=== PATIENT | female | born 1960 | race Caucasian/White ===

== ENCOUNTER 2016-09-28 12:44 | Emergency (ER) | payer OTHER ==
[~2016-09-28] VITALS: Ht 157.5 cm; Wt 54.5 kg
[2016-09-28 12:49] VITALS: Ht 157.5 cm; Wt 54.5 kg
[2016-09-28] MEDS ORDERED: ONDANSETRON (ODT) 4 MG TAB ODT STA (13:20)
[2016-09-28] MEDS ORDERED: HYDROCODONE/APAP (5/325) TAB PO ONE (13:30)
--- NOTE | 2016-09-28 14:23 | RADRPT ---
PROCEDURE: CT brain without contrast CLINICAL INDICATION: Headaches TECHNIQUE: CT of the brain without contrast was performed on a multidetector CT scanner, with multi planar reformats. One or more of the following dose reduction techniques were used: Automated expos ure control, adjustment in mA and / or kV according to patient size, use of iterative reconstructive technique. CTDIvol = 44 mGy; DLP = 720 mGy-cm. COMPARISON: None available FINDINGS: No acute intracranial hemorrhage is identified. No extra-axial fluid collection is seen. There is no mass effect. No midline shift is identified. Ventricles and sulci are within normal limits for size and configuration. The density of the brain is within normal limits. Quiroz-white differentiation is preserved. Calvarium and skull base are intact. Bubbly secretions are visualized in the left sphenoid sinus. IMPRESSION: 1. No evidence of acute intracranial pathology; brain is unremarkable appearance. 2. Paranasal sinus disease described above. RPTAT: VV .Richard Ayala MD, Date Time Electronically viewed and signed by .Richard Ayala MD, on 09/28/2016 14:23 .O/
[2016-09-28 14:32] LABS: ADD UMIC YES; UR ASCORBIC ACID NEGATIVE (NEGATIVE); UR BILIRUBIN (Dip) NEGATIVE (NEGATIVE); UR BLOOD (Dip) NEGATIVE (NEGATIVE); UR CLARITY SLIGHTLY CLOUDY (CLEAR); UR COLOR YELLOW (YELLOW); UR GLUCOSE (Dip) NEGATIVE (NEGATIVE); UR KETONES (Dip) NEGATIVE (NEGATIVE); UR LEUKOCYTE ESTERASE (Dip) 3+ Leu/ul (NEGATIVE); UR NITRITE (Dip) NEGATIVE (NEGATIVE); UR NONSQUAMOUS EPITHELIAL CELL 2 /HPF (NONE SEEN); UR RBC 7 /HPF (0-5); UR SPECIFIC GRAVITY (Dip) 1.008 (1.003-1.030); UR SQUAMOUS EPITHELIAL CELL MODERATE /HPF (FEW); UR TOTAL PROTEIN (Dip) NEGATIVE (NEGATIVE); UR UROBILINOGEN (Dip) NEGATIVE (NEGATIVE)
[2016-09-28] MEDS ORDERED: KETOROLAC 60 MG INJ IM STA (14:49)
[2016-09-28] MEDS ORDERED: AMOXICILLIN/CLAV 875 MG TAB PO ONE (15:00)
[2016-09-28] MEDS ORDERED: predniSONE 20 MG TAB PO ONE (15:00)
[2016-09-28] MEDS ORDERED: BUTA1CAP38 PO (15:24)
[2016-09-28] MEDS ORDERED: IBUP-1542 PO (15:24)
[2016-09-28] MEDS ORDERED: AMOX1TAB10 PO (15:24)
--- NOTE | 2016-09-28 15:31 | ERD ---
ER Documentation Chief Complaint Date/Time DATE: 09/28/16 TIME: 15:29 Chief Complaint pt bib family with c/o headache for months on and off, worse today HPI This 56-year-old female complains of a headache for several months. She is describes as being as every day. She points to the frontal and bitemporal area. She has been seen by her primary doctor told it might be a tension headache. She denies any fevers, visual changes, vomiting, weakness, bowel or bladder incontinence, history of trauma. ROS All systems reviewed and are negative except as per history of present illness. Medications Home Meds Active Scripts Amoxicillin/Potassium Clav (Amox-Clav 875-125 mg Tablet) 875-125 mg Tab, 1 TAB PO BID for 10 Days, #14 TAB Prov:CASEY REYES MD 09/28/16 Tazdqyltjx-Beypqwyuxqpnu-Dzpasnkd* (Fioricet*) 50-300-40 Mg Capsule, 1 CAP PO Q4H Y for HEADACHE, #15 CAP Prov:CASEY RYEES MD 09/28/16 Ibuprofen* (Motrin*) 600 Mg Tab, 600 MG PO Q6, #20 TAB Prov:CASEY REYES MD 09/28/16 Allergies Allergies: Coded Allergies: No Known Allergy (Unverified , 09/28/16) PMhx/Soc Medical and Surgical Hx: pt denies Medical Hx, pt denies Surgical Hx Hx Alcohol Use: No Hx Substance Use: No Hx Tobacco Use: No Physical Exam Vitals Vital Signs Date Time Temp Pulse Resp B/P Pulse Ox O2 Delivery O2 Flow Rate FiO2 09/28/16 12:49 98.3 122 20 165/98 100 Physical Exam Const: [] Alert, not ill-appearing per Head: Atraumatic. No pulsatile masses. Reproducible headache in the bitemporal area and frontal area. Eyes: Normal Conjunctiva ENT: Normal External Ears, Nose and Mouth. Neck: Full range of motion..~ No meningismus. Resp: Clear to auscultation bilaterally Cardio: Regular rate and rhythm, no murmurs Abd: Soft, non tender, non distended. Normal bowel sounds Skin: No petechiae or rashes Back: No midline or flank tenderness Ext: No cyanosis, or edema Neur: Awake and alert. Cranial nerves II through XII grossly intact. No cerebellar signs. No focal neurologic deficits Psych: Normal Mood and Affect Results 24 hrs Laboratory Tests Test 09/28/16 13:46 Urine Color YELLOW Urine Clarity SLIGHTLY CLOUDY Urine pH 6.0 Urine Specific [place] 1.008 Urine Ketones NEGATIVEmg/dL Urine Nitrite NEGATIVEmg/dL Urine Bilirubin NEGATIVEmg/dL Urine Urobilinogen NEGATIVEmg/dL Urine Leukocyte Esterase 3+Ricarda/ul Urine Microscopic RBC 7/HPF Urine Microscopic WBC 6/HPF Urine Squamous Epithelial Cells MODERATE/HPF Urine Hemoglobin NEGATIVEmg/dL Urine Glucose NEGATIVEmg/dL Urine Total Protein NEGATIVEmg/dl Bedside Glucose 125mg/dL Current Medications Medications (Trade) Dose Ordered Sig/Leif Route PRN Reason Start Time Stop Time Status Last Admin Dose Admin Acetaminophen/ Hydrocodone Bitart ([place] (5/325)) 1 tab ONCE ONCE PO 09/28/16 13:30 09/28/16 13:31 DC 09/28/16 13:40 Ondansetron HCl (Zofran Odt) 8 mg ONCE STAT ODT 09/28/16 13:20 09/28/16 13:22 DC 09/28/16 13:40 Ketorolac Tromethamine (Toradol) 60 mg ONCE STAT IM 09/28/16 14:49 09/28/16 14:51 DC Prednisone (Prednisone) 40 mg ONCE ONCE PO 09/28/16 15:00 09/28/16 15:01 DC Amoxicillin/ Clavulanate Potassium (Augmentin) 875 mg ONCE ONCE PO 09/28/16 15:00 09/28/16 15:01 DC Procedures/MDM At check his normal. CT brain shows paranasal sinusitis otherwise no acute findings. Patient was given [place] 5 mg by mouth and Zofran 8 mg by mouth. Patient was given Toradol 60 mg IM and after CT scan for persistent headache. Patient was given Augmentin 875 and prednisone 40 mg by mouth for findings of sinusitis as well. Patient presents with 4 month history of headache of uncertain etiology. She will be treated for sinusitis noted on CT. Signs and symptoms do not suggest mass-effect, neurologic deficit, bleeding, fracture, meningitis. She will be treated with Augmentin and Fioricet and ibuprofen at home and primary care follow-up. The patient was stable with no new complaints during the ER course. Clinically, there is no current evidence to suggest meningitis, sepsis, acute abdomen, pneumonia, acute coronary syndrome, pulmonary embolism, or any other emergent condition appearing to require further evaluation or hospitalization. The patient should certainly return for any new or worsening symptoms per the aftercare instructions. They should otherwise follow-up with her primary care doctor for reevaluation this week. Departure Diagnosis: Primary Impression: Sinusitis Sinusitis location: unspecified location Chronicity: unspecified Qualified Code: J32.9 - Sinusitis, unspecified chronicity, unspecified location Additional Impression: Headache Headache type: unspecified Headache chronicity pattern: unspecified pattern Intractability: not intractable Qualified Code: R51 - Nonintractable headache, unspecified chronicity pattern, unspecified headache type Condition: Stable Patient Instructions: Headache, Unspecified, Sinusitis, Abx Tx Referrals: NO PRIMARY,CARE PHYSICIAN (PCP) Additional Instructions: CT DICE TIENE SINUSITIS. CEREBRO NORMAL. Examines normal hoy. Cheque otro vez con don doctor primario en el proximo [facility] or regresa para mas o nueva simptomas. CASEY REYES MD Sep 28, 2016 15:30
== END 2016-09-28 15:43 | disposition home or self-care (01) ==
LOC: FTE 12:44
DX: J32.9 Chronic sinusitis, unspecified (principal)
CPT/HCPCS: 70450; 81001; 82962; 96372; 99285; J1885; J7512

== ENCOUNTER 2016-11-29 11:00 | Emergency (ER) | payer OTHER, MEDICAID ==
[~2016-11-29] VITALS: Wt 57.5 kg
[~2016-11-29 11:00] MED LIST: AMOX1TAB10 PO; BUTA1CAP38 PO; IBUP-1542 PO
[2016-11-29] MEDS ORDERED: LORA1TAB PO (13:55)
[2016-11-29] MEDS ORDERED: HYDR-902 PO (13:55)
--- NOTE | 2016-11-29 13:57 | ERD ---
ER Documentation Chief Complaint Date/Time DATE: 11/29/16 TIME: 13:56 Chief Complaint COOPER X 5 DAYS HPI This a 56-year-old female who complains of a headache for 7 months daily. The patient was seen here 2 months ago and had a CAT scan that showed no acute intracerebral pathology but some sinusitis. The patient has no sinus pain she complains of diffuse headache that is throbbing and is daily. She says that she also has very bad insomnia for the past 7 months. She said she sleeps only a few hours a night. She says she getting headaches all day long and is not having very good memory. Also having some appetite changes. No focal neurological complaints such as numbness or weakness no speech changes or visual change. Headache is gradual onset, is not severe and is moderate in nature. The headache today is just like every other headache in a different. No fever no neck pain no photophobia no phonophobia ROS All systems reviewed and are negative except as per history of present illness. Medications Home Meds Active Scripts Lorazepam* (Lorazepam*) 1 Mg Tablet, 1-2 MG PO Q8 for INSOMNIA, #20 TAB Prov:GIULINAA MCKEON DO 11/29/16 Hydrocodone/Acetaminophen ([place] 10-325 Tablet) 1 Each Tablet, 1 TAB PO Q6H Y for PAIN, #20 TAB Prov:GIULIANA MCKEON DO 11/29/16 Amoxicillin/Potassium Clav (Amox-Clav 875-125 mg Tablet) 875-125 mg Tab, 1 TAB PO BID for 10 Days, #14 TAB Prov:CASEY REYES MD 09/28/16 Rmmdilgryd-Mcvjmsvlaplbb-Pkbraamn* (Fioricet*) 50-300-40 Mg Capsule, 1 CAP PO Q4H Y for HEADACHE, #15 CAP Prov:CASEY REYES MD 09/28/16 Ibuprofen* (Motrin*) 600 Mg Tab, 600 MG PO Q6, #20 TAB Prov:CASEY REYES MD 09/28/16 Allergies Allergies: Coded Allergies: No Known Allergy (Unverified , 09/28/16) PMhx/Soc Hx Alcohol Use: No Hx Substance Use: No Hx Tobacco Use: No FmHx Family History: No coronary disease Physical Exam Vitals Vital Signs Date Time Temp Pulse Resp B/P Pulse Ox O2 Delivery O2 Flow Rate FiO2 11/29/16 11:10 98.9 100 18 143/90 99 Physical Exam Const: Well-developed, well-nourished Head: Atraumatic, normocephalic Eyes: Normal Conjunctiva, PERRLA, EOMI, normal sclera, no nystagmus ENT: Normal External Ears, Nose and Mouth, moist mucus membranes. Neck: Full range of motion. No meningismus, no lymphadenopathy. Resp: Clear to auscultation bilaterally, no wheezing, rhonchi, rales Cardio: Regular rate and rhythm, no murmurs, S1 S2 present Abd: Soft, non tender x 4, non distended. Normal bowel sounds, no guarding or rebound, no pulsitile abdominal masses or bruits Skin: No petechiae or rashes, no ecchymosis , no maculopapular rash Back: No midline or flank tenderness Ext: No cyanosis, or edema, FROM x 4, normal inspection, neurovascularly intact x 4 Neur: Awake and alert, STR 5/5 x 4, sensation intact x 4, no focal findings, cerebellum intact Psych: Normal Mood and Affect Procedures/MDM Review patient's CAT scan from last visit. The patient is likely having headaches appetite changes memory problems from lack of sleep. The first and want to do is have her sleep better I will provide her with some Ativan for that and have her follow-up with her primary. Departure Diagnosis: Primary Impression: Insomnia Insomnia type: other insomnia Qualified Code: G47.09 - Other insomnia Additional Impression: Headache Headache type: unspecified Headache chronicity pattern: unspecified pattern Intractability: not intractable Qualified Code: R51 - Nonintractable headache, unspecified chronicity pattern, unspecified headache type Condition: Stable Patient Instructions: Self-Care for Headaches, Insomnia GIULIANA MCKEON DO Nov 29, 2016 13:57
[2016-11-29 14:11] VITALS: BP 138/84; PULSE 72; RESP 19; TEMP 98.5
== END 2016-11-29 14:12 | disposition home or self-care (01) ==
LOC: FTE 11:00
DX: G47.09 Other insomnia (principal)
CPT/HCPCS: 99284